=== PATIENT | male | born 1990 | race Caucasian/White ===

== ENCOUNTER 2024-12-03 08:07 | Emergency (ER) | payer MEDICAID ==
[2024-12-03] MEDS: Bacitracin Oint 1 GM U/D Packet TOP ONE (09:17)
[2024-12-03] MEDS: Lidocaine 2% 5 ML SDV INJECT ONE (09:17)
[2024-12-03] MEDS: Lidocaine 2% 5 ML SDV ONE ×2 (09:18)
[2024-12-03] MEDS: Bacitracin Oint 1 GM U/D Packet ONE (09:18)
== END 2024-12-03 09:42 | disposition home or self-care (01) ==
LOC: LL.ED 08:07
DX: S61.012A Laceration without foreign body of left thumb without damage to nail, initial encounter (principal); Z88.6 Allergy status to analgesic agent; W25.XXXA Contact with sharp glass, initial encounter; Y93.89 Activity, other specified
CPT/HCPCS: 12002; 99282; J2003